=== PATIENT | female | born 1995 | race Caucasian/White ===

== ENCOUNTER 2019-09-27 19:39 | Emergency (ER) | payer OTHER, SELFPAY ==
[2019-09-27 19:42] VITALS: BP 146/96; PULSE 116; RESP 16; TEMP 36.8; O2SAT 99
[2019-09-27 20:13] LABS: Basophils Percent Auto 0.3 % (0.2-1.2); Eosinophils Absolute Auto 0.1 K/mm3 (0-0.3); Eosinophils Percent Auto 1.3 % (0-4.4); Hematocrit 46.7 % (37.0-47.0); Hemoglobin 15.8 g/dL (12.0-15.0); Immature Granulocyte Absolute 0.02 K/mm3 (0.00-0.031); Immature Granulocyte Percent A 0.2 % (0-0.5); Lymphocytes Absolute Auto 3.47 K/mm3 (0.9-3.2); Lymphocytes Percent Auto 38.8 % (18.3-44.2); Mean Corpuscular HGB Conc 33.8 g/dl (32-36); Mean Corpuscular Hemoglobin 28.9 pg (26-34); Mean Corpuscular Volume 85.5 fl (80-100); Mean Platelet Volume 10.1 fl (7.4-10.4); Monocytes Absolute Auto 0.7 K/mm3 (0.1-0.6); Monocytes Percent Auto 7.6 % (2.6-8.5); Neutrophils Absolute Auto 4.6 K/mm3 (1.3-6.7); Neutrophils Percent Auto 51.8 % (45.5-73.1); Platelet Count Result 241 k/mm3 (150-375); Red Blood Count 5.46 M/mm3 (4.2-5.4); Red Cell Distribution Width 13.2 % (11.5-14.5); White Blood Count 8.9 K/mm3 (4.5-10.0)
[2019-09-27] MEDS: SODIUM CHLORIDE 0.9% IV 1,000 ML 999 ML IV CONT (20:16)
[2019-09-27] MEDS: METOCLOPRAMIDE HCL INJ 10 MG/2 ML VIAL IV PUSH (20:17)
--- NOTE | 2019-09-27 20:22 | ED.GENADULT ---
HPI - General Adult General Chief complaint: Headache Stated complaint: MIGRAINE Time Seen by Provider: 09/27/19 19:52 History of Present Illness HPI narrative: Patient is a 24-year-old female who presents the ER with headache. Has history of migraines and took her sumatriptan. No relief. Right-sided. No fevers or chills. Reports she is been under a lot of stress lately. Recently she has been talking to her primary care doctor because she has been self inducing vomiting after meals for the last 2 months. This was triggered by the fact that she lost 85 pounds by doing a keto diet and she is scared to gain weight back. She also reports that she has been having easier bruising over the last month or 2. She has a bruise over the lateral right thigh that she does not know how she got it. Related Data Allergies Allergy/AdvReac Type Severity Reaction Status Date / Time bee venom protein (honey bee) Allergy Unknown Verified 03/01/17 15:11 No Known Allergies Allergy Verified 09/22/18 14:12 Review of Systems Review of Systems: All systems reviewed & are unremarkable except as noted in HPI and below Constitutional: Constitutional: Denies chills, Denies fever(s) and Denies weakness Eyes: Eyes: Denies change in vision and Reports photophobia ENT: Denies nasal congestion and Denies sore throat Gastrointestinal: Gastrointestinal: Denies abdominal pain, Denies nausea and Reports vomiting Neurologic: Reports headache(s), Denies focal weakness and Denies numbness Hematologic/Lymphatic: Hematologic/Lymphatic: Reports easy bruising PMFSH Past Medical History Medical History (Updated 09/27/19 @ 23:02 by Nimesh Tamez MD) Migraines Surgical History Surgical History (Updated 09/27/19 @ 20:25 by Nimesh Tamez MD) No pertinent past surgical history Family History Family History (Updated 03/11/17 @ 08:46 by DOCTOR UNKNOWN) Mother Diabetes mellitus Hypertension Other Cerebrovascular accident Family history of malignant neoplasm Social History Social History Smoking status: Never smoker Alcohol intake: never Gender identity (if verbalized by the patient): Female Exam Narrative: Exam Narrative: GENERAL: Anxious and tearful, well-nourished. HEAD: Normocephalic, atraumatic. EYES: PERRL and EOMI. ENT: Mucous membranes moist. CHEST: Clear to auscultation. No respiratory distress. HEART: Tachycardic and regular. Normal peripheral pulses. EXTREMITIES: Normal range of motion. No edema. Bruise right thigh. NEURO: Clear speech, no facial droop. Alert and oriented x3. PSYCH: Normal mood and affect. Course Course Emergency Course: Informed of results. Pain markedly improved. Discharge home. Vital Signs Vital signs: Vital Signs Temperature 98.3 F 09/27/19 19:42 Pulse Rate 116 H 09/27/19 19:42 Respiratory Rate 16 09/27/19 19:42 Blood Pressure 146/96 H 09/27/19 19:42 Pulse Oximetry 99 09/27/19 19:42 Temperature 98.3 F 09/27/19 19:42 Pulse Rate 116 H 09/27/19 19:42 Respiratory Rate 16 09/27/19 19:42 Blood Pressure 146/96 H 09/27/19 19:42 Pulse Oximetry 99 09/27/19 19:42 Medical Decision Making Vital Signs Vital Signs: Vital Signs Temperature 98.3 F 09/27/19 19:42 Pulse Rate 116 H 09/27/19 19:42 Respiratory Rate 16 09/27/19 19:42 Blood Pressure 146/96 H 09/27/19 19:42 Pulse Oximetry 99 09/27/19 19:42 Temperature 98.3 F 09/27/19 19:42 Pulse Rate 116 H 09/27/19 19:42 Respiratory Rate 16 09/27/19 19:42 Blood Pressure 146/96 H 09/27/19 19:42 Pulse Oximetry 99 09/27/19 19:42 Lab Data Result diagrams: 09/27/19 20:07 09/27/19 20:07 Labs: Lab Results 09/27/19 09/27/19 09/27/19 Range/Units 20:07 20:07 20:07 WBC 8.9 (4.5-10.0) K/mm3 RBC 5.46 H (4.2-5.4) M/mm3 Hgb 15.8 H (12.0-15.0) g/dL Hct 46.7 (37.0-47.0) % MCV 85.5 (80-100) fl MCH 28.9 (26-34) pg MC
[2019-09-27 20:23] LABS: INR 0.9; Partial Thromboplastin Time 25.1 SECONDS (22.3-36.8)
[2019-09-27 20:25] LABS: Blood Urea Nitrogen 12 mg/dL (7-17); Calcium 9.6 mg/dL (8.4-10.2); Carbon Dioxide 28 mmol/L (22-30); Chloride 105 mmol/L (98-107); Estimated CRCL calculation 99 ml/min; Estimated Glomerular Filt Rate > 60; Glucose 96 mg/dL (65-105); Potassium 3.8 mmol/L (3.4-5.0); Sodium 139 mmol/L (137-145)
[2019-09-27 20:59] LABS: Add Urine Microscopic? YES; Appearance Urine Clear (Clear); Bacteria Urine Trace /hpf; Bilirubin Urine Negative (Negative); Blood Urine 1+ (Negative); Color Urine Colorless (Yellow); Glucose Urine UA Negative (Negative); Ketones Urine Negative (Negative); Leukocyte Esterase Ur Negative LEU/UL (Negative); Mucus Urine Rare /lpf; Nitrate Urine Negative (Negative); Protein Urine Negative (Negative); RBC Urine 0-2 /hpf (0-2); Specific Grav Ur 1.009 (1.001-1.035); Squamous Epithelial Cell Urine Rare /hpf (Few); Urobilinogen Urine Negative mg/dL (<2.0)
[2019-09-27 22:42] VITALS: BP 115/79; PULSE 76; RESP 16; TEMP 36.8; O2SAT 100
== END 2019-09-27 23:10 | disposition home or self-care (01) ==
PROVIDERS: Emergency Provider Emergency Medicine
DX: R51 Headache (principal)
CPT/HCPCS: 36415; 80048; 81001; 85025; 85610; 85730; 96361; 96374; 96375; 99284; J1200; J2765; J7030

== ENCOUNTER 2020-01-18 07:34 | Emergency (ER) | payer OTHER, SELFPAY ==
[2020-01-18] VITALS (8 sets, daily range): BP systolic 116–146; BP diastolic 71–92; PULSE 110–142; RESP 16–18; TEMP 36.6; O2SAT 96–97
--- NOTE | ~2020-01-18 | XR_ITS ---
EXAMINATION: XR chest 2V DATE: 01/18/2020 08:18 INDICATION: Heart palpitations. Lightheadedness. TECHNIQUE: Frontal and lateral views of the chest were obtained. COMPARISON: Chest single view 05/03/2019 FINDINGS: The chest demonstrates clear lungs without pneumonia, pleural effusion, or pneumothorax. Th e heart size is normal. IMPRESSION: 1. No acute cardiopulmonary disease. Reviewed, dictated and finalized at location A.
[2020-01-18 07:58] LABS: Basophils Absolute Auto 0.1 K/mm3 (0.0-0.1); Basophils Percent Auto 0.4 % (0.2-1.2); Eosinophils Absolute Auto 0.2 K/mm3 (0-0.3); Eosinophils Percent Auto 1.3 % (0-4.4); Hematocrit 50.1 % (37.0-47.0); Hemoglobin 17.1 g/dL (12.0-15.0); Immature Granulocyte Absolute 0.06 K/mm3 (0.00-0.031); Immature Granulocyte Percent A 0.4 % (0-0.5); Lymphocytes Absolute Auto 7.34 K/mm3 (0.9-3.2); Lymphocytes Percent Auto 46.7 % (18.3-44.2); Mean Corpuscular HGB Conc 34.1 g/dl (32-36); Mean Corpuscular Hemoglobin 28.7 pg (26-34); Mean Corpuscular Volume 84.1 fl (80-100); Mean Platelet Volume 10.2 fl (7.4-10.4); Monocytes Absolute Auto 0.8 K/mm3 (0.1-0.6); Monocytes Percent Auto 5.3 % (2.6-8.5); Neutrophils Absolute Auto 7.2 K/mm3 (1.3-6.7); Neutrophils Percent Auto 45.9 % (45.5-73.1); Nucleated Red Blood Cells Perc 0.1 % (0.0-0.2); Platelet Count Result 331 k/mm3 (150-375); Red Blood Count 5.96 M/mm3 (4.2-5.4); Red Cell Distribution Width 12.3 % (11.5-14.5); White Blood Count 15.7 K/mm3 (4.5-10.0)
[2020-01-18 08:07] LABS: INR 0.9; Prothrombin Time 11.3 Seconds (11.1-14.7)
[2020-01-18 08:08] LABS: Partial Thromboplastin Time 26.9 SECONDS (22.3-36.8)
[2020-01-18 08:09] LABS: Anion Gap 19 mmol/L (8-16); Blood Urea Nitrogen 18 mg/dL (7-17); Calcium 9.8 mg/dL (8.4-10.2); Carbon Dioxide 20 mmol/L (22-30); Chloride 100 mmol/L (98-107); Estimated CRCL calculation 111 ml/min; Estimated Glomerular Filt Rate > 60; Glucose 117 mg/dL (65-105); Potassium 3.2 mmol/L (3.4-5.0); Sodium 139 mmol/L (137-145)
[2020-01-18 08:19] LABS: Atypical Lymphocytes Present; Platelet Estimate Adequate (Adequate)
[2020-01-18 08:26] LABS: Troponin I < 0.012 ng/mL (0.000-0.034)
--- NOTE | 2020-01-18 08:33 | ED.ARRPALP ---
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 Currently patient main complaint is probably not able to take her test tomorrow. Patient reports having similar symptoms off and on for the last 6 months with a lot of passing out. Patient on Atkins diet lately with a lot of weight loss, denies any fever, chills, nausea, vomiting, shortness of breath, chest pain, headache, back pain or abdominal pain. Patient on control, does not smoke, does not drink or uses marijuana. Related Data Home Medications Medication Instructions Recorded Confirmed etonogestrel-ethinyl estradiol vag ring VAGINAL 01/18/20 [NuvaRing] spironolactone 01/18/20 sumatriptan succinate mg PO 01/18/20 Allergies Allergy/AdvReac Type Severity Reaction Status Date / Time bee venom protein (honey bee) Allergy Unknown Verified 03/01/17 15:11 No Known Allergies Allergy Verified 09/22/18 14:12 Review of Systems Review of Systems: Narrative: CONSTITUTIONAL: Denies fever, chills, or sweats. EYES: Denies visual changes, redness, or discharge. ENT: Denies rhinorrhea, congestion, sore throat, or otalgia. CARDIOVASCULAR: Denies chest pain, palpitations, or edema. RESPIRATORY: Denies cough or dyspnea. GASTROINTESTINAL: Denies abdominal pain, nausea, vomiting, or diarrhea. GENITOURINARY: Denies dysuria or hematuria. SKIN: Denies rash or itching. MUSCULOSKELETAL: Denies back pain, joint pain, or myalgia. NEUROLOGIC: Denies headache, numbness, or weakness. PSYCHIATRIC: Denies anxiety or depression. [facility] Past Medical History Medical History (Updated 01/18/20 @ 10:40 by Silas Echavarria MD) Migraines Surgical History Surgical History (Updated 09/27/19 @ 20:25 by Nimesh Tamez MD) No pertinent past surgical history Family History Family History (Updated 03/11/17 @ 08:46 by DOCTOR UNKNOWN) Mother Diabetes mellitus Hypertension Other Cerebrovascular accident Family history of malignant neoplasm Social History Social History Smoking status: Never smoker Alcohol intake: never Gender identity (if verbalized by the patient): Female Exam Narrative: Exam Narrative: General appearance: Well-developed, well-nourished, in tears, sister at the bedside Skin: Normal color Head: Normocephalic, nontraumatic Eyes: Clear conjunctiva ENT: Oropharynx normal, ears normal, nose normal Neck: Supple, nontender Chest and respiratory: Airway patent, no respiratory distress, no accessory muscle use Heart: Regular rate/rhythm, tachycardia Abdomen: Soft, nontender, no organomegaly, quiet bowel sounds Vascular: Normal peripheral pulses, normal capillary refill. Musculoskeletal: Normal range of motion, nontender back Neurologic: Alert and oriented ?3, INDEX EDITOR is normal as tested, no gross motor deficit Course Course Emergency Course: Stable Consultations Consultation #1: dr sutton, developer relations manager Event Holter monitor, follow-up as outpatient tomorrow Date: 01/18/20 Time: 10:37 Vital Signs Vital signs: Vital Signs Temperature 36.6 C 01/18/20 07:40 Pulse Rate 140 H 01/18/20 07:40 Respiratory Rate 16 01/18/20 07:40 Blood Pressure 146/86 H 01/18/20 07:40 Pulse Oximetry 97 01/18/20 07:40
[2020-01-18] MEDS: POTASSIUM CHLORIDE 20 MEQ TABLET 40 MEQ PO (08:51)
[2020-01-18] MEDS: LORazepam INJ (*CRX) 2 MG/ML VIAL 1 MG IV PUSH (08:52)
[2020-01-18 09:44] LABS: Free T4 Free Thyroxine Reflex 1.09 ng/dL (0.78-2.19)
[2020-01-18 10:31] LABS: Total Triiodothyronine (T3) 1.58 NG/ML (0.97-1.69)
== END 2020-01-18 11:10 | disposition home or self-care (01) ==
PROVIDERS: Emergency Provider Emergency Medicine
DX: R00.2 Palpitations (principal); R00.0 Tachycardia, unspecified; E87.6 Hypokalemia; R94.31 Abnormal electrocardiogram [ECG] [EKG]
CPT/HCPCS: 36415; 71046; 80048; 84439; 84443; 84480; 84484; 85025; 85610; 85730; 93005; 96374; 99284; A9270; J2060

== ENCOUNTER 2020-01-25 09:20 | Outpatient (CLI) | payer OTHER, SELFPAY ==
[2020-01-25 10:30] LABS: Basophils Percent Auto 0.4 % (0.2-1.2); Eosinophils Absolute Auto 0.1 K/mm3 (0-0.3); Eosinophils Percent Auto 2.1 % (0-4.4); Hematocrit 44.4 % (37.0-47.0); Hemoglobin 15.1 g/dL (12.0-15.0); Immature Granulocyte Absolute 0.02 K/mm3 (0.00-0.031); Immature Granulocyte Percent A 0.3 % (0-0.5); Lymphocytes Absolute Auto 2.75 K/mm3 (0.9-3.2); Lymphocytes Percent Auto 40.3 % (18.3-44.2); Mean Corpuscular Hemoglobin 28.9 pg (26-34); Mean Corpuscular Volume 84.9 fl (80-100); Mean Platelet Volume 10.2 fl (7.4-10.4); Monocytes Absolute Auto 0.4 K/mm3 (0.1-0.6); Monocytes Percent Auto 5.3 % (2.6-8.5); Neutrophils Absolute Auto 3.5 K/mm3 (1.3-6.7); Neutrophils Percent Auto 51.6 % (45.5-73.1); Platelet Count Result 234 k/mm3 (150-375); Red Blood Count 5.23 M/mm3 (4.2-5.4); Red Cell Distribution Width 12.5 % (11.5-14.5); White Blood Count 6.8 K/mm3 (4.5-10.0)
[2020-01-25 10:42] LABS: Anion Gap 9 mmol/L (8-16); Blood Urea Nitrogen 18 mg/dL (7-17); Calcium 9.2 mg/dL (8.4-10.2); Carbon Dioxide 28 mmol/L (22-30); Chloride 104 mmol/L (98-107); Estimated Glomerular Filt Rate > 60; Glucose 92 mg/dL (65-105); Potassium 3.9 mmol/L (3.4-5.0); Sodium 141 mmol/L (137-145)
== END 2020-01-25 09:21 | disposition home or self-care (01) ==
LOC: ANHLAB 09:22
PROVIDERS: Visit Provider Internal Medicine Cardiovascular Disease
DX: E87.6 Hypokalemia (principal); D75.1 Secondary polycythemia; D72.829 Elevated white blood cell count, unspecified
CPT/HCPCS: 36415; 80048; 85025

== ENCOUNTER 2020-02-29 12:10 | Emergency (ER) | payer OTHER, SELFPAY ==
[2020-02-29 12:13] VITALS: BP 150/104; PULSE 122; RESP 18; TEMP 37.1; O2SAT 99
[2020-02-29] MEDS: LORazepam INJ (*CRX) 2 MG/ML VIAL 1 MG IV PUSH (12:27)
--- NOTE | 2020-02-29 12:31 | ECG_ITS ---
Measurements Intervals [place] Rate: 120 P: 51 WV: 165 QRS: 35 QRSD: 73 T: 53 QT: 339 QTc: 480 Interpretive Statements SINUS TACHYCARDIA BORDERLINE ST-T WAVE ABNORMALITY- DIFFUSE LEADS BASELINE ARTIFACT- I, II, III, AVR, AVL, AVF, V3-V4 ABNORMAL ECG Electronically Signed On 02-29-2020 16:07:36 [employer] by John Green D.O.
--- NOTE | 2020-02-29 12:59 | ED.ARRPALP ---
HPI - Arrhythmia/Palpitations General Chief Complaint: Arrhythmia/Palpitations Stated Complaint: Heart racing Time Seen by Provider: 02/29/20 12:16 Source: patient Mode of arrival: ambulatory Limitations: no limitations History of Present Illness HPI narrative: Patient is a 25-year-old female who presents to emergency department for evaluation of palpitations that began just prior to arrival was walking when she developed the palpitations and rapid heart rate sensation patient notes she has had this in the past and is followed by cardiology at [facility] for this patient has had tachycardia with syncopal episodes historically. Patient does not take anything for her symptoms and on arrival denies any pain does appear anxious but denies anxiety. Patient has had a history of stress and anxiety historically from prior visit records Related Data Home Medications Medication Instructions Recorded Confirmed etonogestrel-ethinyl estradiol vag ring VAGINAL 01/18/20 [NuvaRing] spironolactone 01/18/20 sumatriptan succinate mg PO 01/18/20 Allergies Allergy/AdvReac Type Severity Reaction Status Date / Time bee venom protein (honey bee) Allergy Unknown Verified 03/01/17 15:11 No Known Allergies Allergy Verified 09/22/18 14:12 Review of Systems Review of Systems: All systems reviewed & are unremarkable except as noted in HPI and below PMFSH Past Medical History Medical History Migraines Surgical History Surgical History No pertinent past surgical history Family History Family History (Updated 03/11/17 @ 08:46 by DOCTOR UNKNOWN) Mother Diabetes mellitus Hypertension Other Cerebrovascular accident Family history of malignant neoplasm Social History Social History Smoking status: Never smoker Alcohol intake: never Gender identity (if verbalized by the patient): Female Exam Narrative: Exam Narrative: GENERAL: Well-appearing, well-nourished, and in no acute distress. HEAD: Normocephalic, atraumatic. EYES: PERRLA and EOMI. ENT: Nares clear, no rhinorrhea or epistaxis. Mucous membranes moist. CHEST: Clear to auscultation. No respiratory distress. No wheezes rales or rhonchi HEART: Tachycardic rate and regular rhythm. No murmur heard. Normal peripheral pulses. ABDOMEN: Soft, nontender, nondistended EXTREMITIES: Normal range of motion. No edema. SKIN: Warm, dry, no rash. NEURO: No focal deficits. Alert and oriented x3. Cranial nerves II through XII grossly intact PSYCH: Normal mood and affect. Course Course Emergency Course: Patient in the room at this time in no distress normal vital signs afebrile nontoxic-appearing could be anxiety or sinus tachycardia of unknown etiology no high risk changes in the imaging or blood work patient will be discharged home for plan follow-up with cardiology given reasons to return Vital Signs Vital signs: Vital Signs Temperature 98.8 F 02/29/20 12:13 Pulse Rate 122 H 02/29/20 12:13 Respiratory Rate 18 02/29/20 12:13 Blood Pressure 150/104 H 02/29/20 12:13 Pulse Oximetry 99 02/29/20 12:13 Temperature 98.8 F 02/29/20 12:13 Pulse Rate 122 H 02/29/20 12:13 Respiratory Rate 18 02/29/20 12:13 Blood Pressure 150/104 H 02/29/20 12:13 Pulse Oximetry 99 02/29/20 12:13 MDM - Arrhythmia/Palpitations MDM Narrative Medical decision making narrative: Patients EKGs and labs are without significant high risk changes. Cardiac risk factors were reviewed. Patient is felt likely to be low risk for ACS and reasonable for further risk stratification testing as an outpatient. Pain was not sudden or maximal in onset without tearing or ripping. quality. No other signs or symptoms to suggest aortic dissection. A low-risk Wells criteria is noted. PE is felt to be unlikely. No p
[2020-02-29 13:21] LABS: Basophils Percent Auto 0.3 % (0.2-1.2); Eosinophils Absolute Auto 0.1 K/mm3 (0-0.3); Eosinophils Percent Auto 0.7 % (0-4.4); Hematocrit 46.7 % (37.0-47.0); Immature Granulocyte Absolute 0.02 K/mm3 (0.00-0.031); Immature Granulocyte Percent A 0.2 % (0-0.5); Lymphocytes Absolute Auto 4.47 K/mm3 (0.9-3.2); Lymphocytes Percent Auto 43.5 % (18.3-44.2); Mean Corpuscular HGB Conc 34.3 g/dl (32-36); Mean Corpuscular Hemoglobin 28.9 pg (26-34); Mean Corpuscular Volume 84.4 fl (80-100); Mean Platelet Volume 10.4 fl (7.4-10.4); Monocytes Absolute Auto 0.6 K/mm3 (0.1-0.6); Monocytes Percent Auto 5.4 % (2.6-8.5); Neutrophils Absolute Auto 5.1 K/mm3 (1.3-6.7); Neutrophils Percent Auto 49.9 % (45.5-73.1); Platelet Count Result 228 k/mm3 (150-375); Red Blood Count 5.53 M/mm3 (4.2-5.4); Red Cell Distribution Width 12.3 % (11.5-14.5); White Blood Count 10.3 K/mm3 (4.5-10.0)
[2020-02-29 13:27] LABS: Add Urine Microscopic? YES; Appearance Urine Clear (Clear); Bilirubin Urine Negative (Negative); Blood Urine 2+ (Negative); Color Urine Yellow (Yellow); Glucose Urine UA Negative (Negative); Ketones Urine Trace mg/dL (Negative); Leukocyte Esterase Ur Negative LEU/UL (Negative); Mucus Urine Rare /lpf; Nitrate Urine Negative (Negative); Protein Urine Negative (Negative); RBC Urine 21-50 /hpf (0-2); Specific Grav Ur 1.015 (1.001-1.035); Squamous Epithelial Cell Urine Occasional /hpf (Few); Urobilinogen Urine Negative mg/dL (<2.0); WBC Urine 0-3 /hpf
[2020-02-29 13:34] LABS: INR 0.8; Prothrombin Time 12.1 Seconds (11.1-14.7)
[2020-02-29 13:38] LABS: Alanine Aminotransferase 22 U/L (4-35); Albumin Level 4.6 g/dL (3.5-5.1); Alkaline Phosphatase 69 U/L (38-126); Anion Gap 12 mmol/L (8-16); Aspartate Amino Transferase 30 U/L (14-36); Bilirubin,Total 0.4 mg/dL (0.2-1.3); Blood Urea Nitrogen 11 mg/dL (7-17); Calcium 9.7 mg/dL (8.4-10.2); Carbon Dioxide 27 mmol/L (22-30); Chloride 101 mmol/L (98-107); D Dimer 0.27 ug/mL (<0.48); Estimated CRCL calculation 111 ml/min; Estimated Glomerular Filt Rate > 60; Glucose 92 mg/dL (65-105); Magnesium 1.8 mg/dL (1.6-2.3); Phosphorus 3.6 mg/dL (2.5-4.5); Potassium 3.4 mmol/L (3.4-5.0); Sodium 140 mmol/L (137-145)
[2020-02-29 13:45] LABS: Troponin I < 0.012 ng/mL (0.000-0.034)
[2020-02-29 14:35] VITALS: BP 123/73; PULSE 78; RESP 16; O2SAT 99
== END 2020-02-29 14:37 | disposition home or self-care (01) ==
PROVIDERS: Emergency Medicine Emergency Medical Services; Emergency Provider Emergency Medicine
DX: R00.0 Tachycardia, unspecified (principal); R00.2 Palpitations
CPT/HCPCS: 36415; 80053; 81001; 83735; 84100; 84443; 84484; 85025; 85380; 85610; 85730; 93005; 96374; 99284; J2060

== ENCOUNTER 2020-03-14 08:27 | Emergency (ER) | payer OTHER, SELFPAY ==
[2020-03-14] VITALS (7 sets, daily range): BP systolic 118–141; BP diastolic 68–128; PULSE 73–107; RESP 15–22; TEMP 36.9; O2SAT 98–100
--- NOTE | ~2020-03-14 | XR_ITS ---
EXAMINATION: XR chest 2V DATE: 03/14/2020 09:08 INDICATION: Midsternal chest pain. TECHNIQUE: Frontal and lateral views of the chest were obtained. COMPARISON: Chest 2 views 01/18/2020 FINDINGS: The chest demonstrates clear lungs without pneumonia, pleural effusion, or pneumothorax. Th e heart size is normal. Again seen is widening of left acromioclavicular joint. IMPRESSION: 1. No acute cardiopulmonary disease. Reviewed, dictated and finalized at location B. [employer]OR OF RETENTION
--- NOTE | 2020-03-14 08:31 | ECG_ITS ---
Measurements Intervals [place] Rate: 96 P: 63 OR: 141 QRS: 35 QRSD: 86 T: 58 QT: 326 QTc: 414 Interpretive Statements SINUS RHYTHM WITH SINUS ARRHYTHMIA POSSIBLE LEFT ATRIAL ENLARGEMENT BORDERLINE ST-T WAVE ABNORMALITY- DIFFUSE LEADS BASELINE ARTIFACT- I, II, III, AVR, AVL, AVF, V1-V6 BORDERLINE ECG Electronically Signed On 03-14-2020 8:52:14 JOB PRINTER by John Green D.O.
[2020-03-14 09:17] LABS: Anion Gap 14 mmol/L (8-16); Blood Urea Nitrogen 14 mg/dL (7-17); Calcium 9.5 mg/dL (8.4-10.2); Carbon Dioxide 23 mmol/L (22-30); Chloride 103 mmol/L (98-107); Estimated Glomerular Filt Rate > 60; Glucose 107 mg/dL (65-105); Potassium 3.7 mmol/L (3.4-5.0); Sodium 140 mmol/L (137-145)
[2020-03-14 09:22] LABS: Basophils Percent Auto 0.5 % (0.2-1.2); Eosinophils Absolute Auto 0.1 K/mm3 (0-0.3); Eosinophils Percent Auto 1.3 % (0-4.4); Hematocrit 41.8 % (37.0-47.0); Hemoglobin 14.6 g/dL (12.0-15.0); Immature Granulocyte Absolute 0.01 K/mm3 (0.00-0.031); Immature Granulocyte Percent A 0.2 % (0-0.5); Lymphocytes Absolute Auto 2.36 K/mm3 (0.9-3.2); Lymphocytes Percent Auto 38.9 % (18.3-44.2); Mean Corpuscular HGB Conc 34.9 g/dl (32-36); Mean Corpuscular Hemoglobin 28.5 pg (26-34); Mean Corpuscular Volume 81.6 fl (80-100); Mean Platelet Volume 9.8 fl (7.4-10.4); Monocytes Absolute Auto 0.2 K/mm3 (0.1-0.6); Monocytes Percent Auto 3.8 % (2.6-8.5); Neutrophils Absolute Auto 3.4 K/mm3 (1.3-6.7); Neutrophils Percent Auto 55.3 % (45.5-73.1); Platelet Count Result 197 k/mm3 (150-375); Red Blood Count 5.12 M/mm3 (4.2-5.4); Red Cell Distribution Width 12.1 % (11.5-14.5); White Blood Count 6.1 K/mm3 (4.5-10.0)
[2020-03-14 09:29] LABS: Troponin I < 0.012 ng/mL (0.000-0.034)
[2020-03-14 09:31] LABS: INR 0.9; Prothrombin Time 12.6 Seconds (11.1-14.7)
[2020-03-14 09:32] LABS: Partial Thromboplastin Time 27.4 SECONDS (22.3-36.8)
--- NOTE | 2020-03-14 10:17 | ED.CHESTPAIN ---
HPI - Chest Pain General Chief Complaint: Chest Pain Stated Complaint: Chest Pain, Rapid Heart Rate Time Seen by Provider: 03/14/20 09:15 Source: patient Mode of arrival: ambulatory Limitations: no limitations History of Present Illness HPI narrative: Patient is a 25-year-old female who presents with anxiety and palpitations with history of similar occurrence has been seen for this in the past patient denies any pain or other symptoms upon evaluation but notes walking into work she felt very anxious with her heart racing has follow-up with cardiology in the near future for this patient denies any URI symptoms vomiting diarrhea or other complaints and on arrival is in the room and does not appear to be in distress patient has no other complaints at this time. History of anxiety, denies suicidal or homicidal ideation Related Data Home Medications Medication Instructions Recorded Confirmed etonogestrel-ethinyl estradiol vag ring VAGINAL 01/18/20 [NuvaRing] fluoxetine mg 03/14/20 Allergies Allergy/AdvReac Type Severity Reaction Status Date / Time bee venom protein (honey bee) Allergy Unknown Unknown Verified 03/14/20 08:37 No Known Allergies Allergy Verified 03/14/20 08:37 Review of Systems Review of Systems: All systems reviewed & are unremarkable except as noted in HPI and below PMFSH Past Medical History Medical History Migraines Surgical History Surgical History No pertinent past surgical history Family History Family History (Updated 03/11/17 @ 08:46 by DOCTOR UNKNOWN) Mother Diabetes mellitus Hypertension Other Cerebrovascular accident Family history of malignant neoplasm Social History Social History Smoking status: Never smoker Alcohol intake: never Gender identity (if verbalized by the patient): Female Exam Narrative: Exam Narrative: GENERAL: Well-appearing, well-nourished, and in no acute distress. HEAD: Normocephalic, atraumatic. EYES: PERRLA and EOMI. ENT: Nares clear, no rhinorrhea or epistaxis. Mucous membranes moist. CHEST: Clear to auscultation. No respiratory distress. No wheezes rales or rhonchi HEART: Regular rate and rhythm. No murmur heard. Normal peripheral pulses. ABDOMEN: Soft, nontender, nondistended EXTREMITIES: Normal range of motion. No edema. SKIN: Warm, dry, no rash. NEURO: No focal deficits. Alert and oriented x3. PSYCH: Normal mood and affect. Course Course Emergency Course: Patient in the room no distress aware of case findings treatment plan diagnosis agreeing to follow-up as directed or to return if symptoms worsen or concerns Vital Signs Vital signs: Vital Signs Temperature 98.5 F 03/14/20 08:31 Pulse Rate 96 03/14/20 08:31 Respiratory Rate 15 03/14/20 08:31 Blood Pressure 140/68 03/14/20 08:31 Pulse Oximetry 98 03/14/20 08:31 Temperature 98.5 F 03/14/20 08:31 Pulse Rate 87 03/14/20 09:12 Respiratory Rate 16 03/14/20 09:12 Blood Pressure 127/84 03/14/20 09:12 Pulse Oximetry 99 03/14/20 08:36 MDM - Chest Pain MDM Narrative Medical decision making narrative: Patients EKGs and labs are without significant high risk changes. Cardiac risk factors were reviewed. Patient is felt likely to be low risk for ACS and reasonable for further risk stratification testing as an outpatient. Pain was not sudden or maximal in onset without tearing or ripping. quality. No other signs or symptoms to suggest aortic dissection. A low-risk Wells criteria is noted. PE is felt to be unlikely. No pneumonia or URI symptoms were seen on evaluation today. Patient is felt to b reasonable for continued evaluation as an outpatient. Lab Data Result diagrams: 03/14/20 09:16 03/14/20 08:57 Labs: Lab Results 03/14/20 03/14/20 03/14/20
== END 2020-03-14 10:33 | disposition home or self-care (01) ==
PROVIDERS: Emergency Provider Emergency Medicine
DX: R07.9 Chest pain, unspecified (principal); R94.31 Abnormal electrocardiogram [ECG] [EKG]
CPT/HCPCS: 36415; 71046; 80048; 84484; 85025; 85610; 85730; 93005; 99284

== ENCOUNTER 2020-04-15 10:54 | Emergency (ER) | payer OTHER, SELFPAY ==
[2020-04-15 11:04] VITALS: BP 128/80; PULSE 98; RESP 16; TEMP 37.3; O2SAT 97
--- NOTE | 2020-04-15 11:15 | ED.GENADULT ---
HPI - General Adult General Chief complaint: Dental/Oral Stated complaint: uti/toothache Time Seen by Provider: 04/15/20 11:18 Source: patient and RN notes reviewed Mode of arrival: ambulatory Limitations: no limitations History of Present Illness HPI narrative: 25-year-old female presents with multiple complaints. Reports symptoms of UTI, suprapubic discomfort, urine frequency, hematuria. Denies dysuria, urgency, fever, nausea, vomiting, back pain. In a separate complaint she reports frontal upper dental pain, gum inflammation. Reports she has an appointment with her dentist tomorrow. She denies any swollen lips, swollen tongue, difficulty swallowing MD complaint: UTI, dental pain Related Data Home Medications Medication Instructions Recorded Confirmed etonogestrel-ethinyl estradiol vag ring VAGINAL 01/18/20 [NuvaRing] fluoxetine mg 03/14/20 Allergies Allergy/AdvReac Type Severity Reaction Status Date / Time bee venom protein (honey bee) Allergy Unknown Unknown Verified 03/14/20 08:37 No Known Allergies Allergy Verified 03/14/20 08:37 Review of Systems Review of Systems: Narrative: CONSTITUTIONAL: Denies malaise, chills, sweats, or fever. EYES: Denies visual changes, redness, or discharge. ENT: Denies rhinorrhea, congestion, sinus pain, otalgia or sore throat. Reports upper frontal dental pain, gum redness and swelling CARDIOVASCULAR: Denies chest pain, palpitations, or edema. RESPIRATORY: Denies cough or dyspnea. GASTROINTESTINAL: Reports suprapubic discomfort. Denies abdominal pain, nausea, vomiting, diarrhea, bloody, or mucous stools. GENITOURINARY: Denies dysuria, urgency. Reports frequency, suprapubic discomfort, hematuria. SKIN: Denies rash or itching. MUSCULOSKELETAL: Denies back pain, joint pain, or myalgia. NEUROLOGIC: Denies numbness, weakness, or headache. PSYCHIATRIC: Reports history of anxiety or depression. All systems reviewed & are unremarkable except as noted in HPI and below PMFSH Past Medical History Medical History Migraines Surgical History Surgical History No pertinent past surgical history Family History Family History (Updated 03/11/17 @ 08:46 by DOCTOR UNKNOWN) Mother Diabetes mellitus Hypertension Other Cerebrovascular accident Family history of malignant neoplasm Social History Social History Smoking status: Never smoker Alcohol intake: never Gender identity (if verbalized by the patient): Female Comments At time of signature, agree with nursing past medical, surgical, social and family history. There is no relevant family history pertinent to the presenting complaint Exam Narrative: Exam Narrative: GENERAL: Well-appearing, well-nourished, and in no acute distress. HEAD: Normocephalic. EYES: PERRLA, conjunctivae clear. HEENT: No oropharynx edema, erythema. No obvious caries, missing teeth, broken teeth. Gingival erythema, mild edema, slight ulceration noted above teeth 8 and 9, no periapical abscess noted NECK: Supple. No lymphadenopathy CHEST: Clear to auscultation. No respiratory distress. HEART: Regular rate and rhythm. ABDOMEN: Soft, nontender upon palpation, nondistended, normal active bowel sounds, no palpable or pulsatile masses, no guarding. No CVA tenderness SKIN: Warm, dry, no rash. NEURO: Alert and oriented x3. PSYCH: Normal mood and affect Course Course Emergency Course: Patient is aware of diagnosis, understands and agrees to treatment plan. Anticipatory guidance given. Patient agrees to follow-up as directed and is aware of reasons to seek care at the emergency department. Portions of this record may have been created with voice recognition software Vital Signs Vital signs: Vital Signs Temperature 99.2 F 04/15/20 11:04 Pulse Rate 98 04/15/20 11:04 Res
== END 2020-04-15 11:47 | disposition home or self-care (01) ==
PROVIDERS: Emergency Provider Nurse Practitioner; PCP Internal Medicine
DX: R35.0 Frequency of micturition (principal); R10.30 Lower abdominal pain, unspecified; R31.9 Hematuria, unspecified; K06.9 Disorder of gingiva and edentulous alveolar ridge, unspecified; J45.909 Unspecified asthma, uncomplicated
CPT/HCPCS: 81003; 87086; 87088; 99213; G0463

== ENCOUNTER 2020-07-19 11:56 | Emergency (ER) | payer OTHER, SELFPAY ==
[2020-07-19 12:20] VITALS: BP 124/75; PULSE 81; RESP 18; TEMP 36.7; O2SAT 97
--- NOTE | 2020-07-19 12:52 | ED.URI ---
HPI - URI/Sore Throat General Chief Complaint: Upper Respiratory Infection Stated Complaint: PAIN I N RIGHT EAR Time Seen by Provider: 07/19/20 12:52 Source: patient Mode of arrival: ambulatory Limitations: no limitations History of Present Illness HPI Narrative: Chelita Cristobal is a 25 yo female with no PMH who comes here with complaint of right ear pain as well as sinus drainage. She has sore throat yesterday that is now disappeared, is afebrile Related Data Home Medications Medication Instructions Recorded Confirmed Womens Daily Vitamin 07/19/20 Allergies Allergy/AdvReac Type Severity Reaction Status Date / Time bee venom protein (honey bee) Allergy Unknown Unknown Verified 03/14/20 08:37 No Known Allergies Allergy Verified 03/14/20 08:37 Review of Systems Review of Systems: Narrative: CONSTITUTIONAL: Denies fever, chills, sweats. EYES: Denies visual changes, redness, discharge. ENT: Denies rhinorrhea, post nasal congestion, sore throat, right otalgia. CARDIOVASCULAR: Denies chest pain, palpitations, edema. RESPIRATORY: Denies dyspnea, wheezing, cough GASTROINTESTINAL: Denies abdominal pain, nausea, vomiting, diarrhea. GENITOURINARY: Denies dysuria, hematuria, abnormal discharge SKIN: Denies rash or itching. NEUROLOGIC: Denies numbness, or focal weakness. PSYCHIATRIC: Denies anxiety or depression. PMFSH Past Medical History Medical History Migraines Surgical History Surgical History No pertinent past surgical history Family History Family History Mother Diabetes mellitus Hypertension Other Cerebrovascular accident Family history of malignant neoplasm Social History Social History Smoking status: Never smoker Alcohol intake: never Gender identity (if verbalized by the patient): Female Comments At time of signature, I agree with nursing past medical, surgical, social and family history. There is no relevant family history pertinent to the presenting complaint. Exam Narrative: Exam Narrative: GENERAL: This is a well-nourished, well-developed patient, in mild distress. HEAD: normocephalic, atraumatic. EYES: Sclera clear/white. Vision is grossly intact. EARS: External ears normal, auditory canals R erythema, L some wax without drainage, Hearing grossly intact. NOSE: External nose normal without nasal discharge, nares without redness, mild rhinorrhea. THROAT: Mucous membranes moist, posterior pharynx erythema NECK: Neck supple, tender on right CARDIOVASCULAR: Regular rate and rhythm without murmurs, gallops, or rubs. RESPIRATORY: Clear to auscultation. Breath sounds equal bilaterally. No wheezes, rales, or rhonchi. GASTROINTESTINAL: Abdomen soft, SKIN: warm, intact with no suspicious lesions or rash, good texture and turgor. NEURO: awake, alert, and oriented to person, place and time. There were no obvious focal neurologic abnormalities. Steady gait EXTREMITIES: Normal range of motion. BACK: Nontender without deformity Course Course Emergency Course: [facility] complaints of right ear pain and sinus symptoms tender posterior pharynx drainage Negative, flu negative, Covid PCR sent; rapid Covid not done since symptoms started yesterday Given prednisone, eardrops, zyrtec- follow up with pcp Vital Signs Vital signs: Vital Signs Temperature 98.1 F 07/19/20 12:20 Pulse Rate 81 07/19/20 12:20 Respiratory Rate 18 07/19/20 12:20 Blood Pressure 124/75 07/19/20 12:20 Pulse Oximetry 97 07/19/20 12:20 Temperature 98.1 F 07/19/20 12:20 Pulse Rate 81 07/19/20 12:20 Respiratory Rate 18 07/19/20 12:20 Blood Pressure 124/75 07/19/20 12:20 Pulse Oximetry 97 07/19/20 12:20 MDM - URI/Sore Throat Differentia
[2020-07-20 19:44] LABS: SARS-CoV-2 RNA PCR Negative
== END 2020-07-19 13:14 | disposition home or self-care (01) ==
PROVIDERS: Emergency Provider Nurse Practitioner
DX: H92.01 Otalgia, right ear (principal); J06.9 Acute upper respiratory infection, unspecified; Z20.822 Contact with and (suspected) exposure to COVID-19; J45.909 Unspecified asthma, uncomplicated
CPT/HCPCS: 87081; 87804; 87880; 99213; C9803; G0463; U0003; U0005